=== PATIENT | male | born 1935 | race Caucasian/White ===

== ENCOUNTER 2017-05-13 18:20 | Emergency (ER) | payer OTHER ==
[~2017-05-13] VITALS: Ht 182.9 cm; Wt 112.5 kg
[~2017-05-13 18:20] MED LIST: ACETAMINOPHEN325 M1 PO; ADULT LOW DOSE81 MG PO; ALLOPURINOL1 GM MC; AMLODIPINE BESY10 MG PO; ASPIRIN81 M2 PO; ATORVASTATIN CA80 MG PO; AVODART0.5 MG PO; CLOPIDOGREL75 MG PO; FLOMAX0.4 MG PO; FLUOXETINE HCL20 MG PO; GLUCOPHAGE1000 MG PO; LANTUS (UNITS)1 UNIT SC; LANTUS 3 M100 UNITS1 SC; LANTUS100 UNIT/1 SQ; LISINOPRIL2.5 MG PO; MAXIDEX5 ML OP; MAXZIDE 37.5 M1 EACH PO; METFORMIN HYDROC1 GM PO; METOPROLOL TART25 MG PO; NORVASC2.5 MG PO; NORVASC5 MG PO; PRANDIN0.5 MG PO; PRINIVIL40 MG PO; PROZAC20 MG PO; PROZAC40 MG PO; REPAGLINIDE0.5 MG PO; TAMSULOSIN HCL0.4 MG PO; TYLENOL REGULA325 MG PO; TYLENOL WITH C1 EACH PO; VITAMIN D31000 UNIT PO; VYTORIN 10-101 EACH PO; ZESTRIL,PRINIV2.5 MG PO; ZESTRIL2.5 MG PO; ZYLOPRIM150 MG PO
[2017-05-13 21:04] VITALS: BP 189/90
== END 2017-05-13 21:08 | disposition home or self-care (01) ==
LOC: EME 18:20
DX: L76.22 Postprocedural hemorrhage of skin and subcutaneous tissue following other procedure (principal); C44.92 Squamous cell carcinoma of skin, unspecified; F02.80 Dementia in other diseases classified elsewhere, unspecified severity, without behavioral disturbance, psychotic disturbance, mood disturbance, and anxiety; G30.9 Alzheimer's disease, unspecified; E11.9 Type 2 diabetes mellitus without complications; Z79.4 Long term (current) use of insulin; I10 Essential (primary) hypertension; E78.5 Hyperlipidemia, unspecified; Z87.891 Personal history of nicotine dependence
CPT/HCPCS: 99281; 99284

== ENCOUNTER 2017-05-14 09:33 | Emergency (ER) | payer OTHER ==
[~2017-05-14] VITALS: Ht 182.9 cm; Wt 113.7 kg
[2017-05-14 11:03] VITALS: BP 179/81
== END 2017-05-14 12:16 | disposition home or self-care (01) ==
LOC: EME 09:33
DX: Z48.3 Aftercare following surgery for neoplasm (principal); Z85.820 Personal history of malignant melanoma of skin; F03.90 Unspecified dementia, unspecified severity, without behavioral disturbance, psychotic disturbance, mood disturbance, and anxiety; E11.9 Type 2 diabetes mellitus without complications; Z79.4 Long term (current) use of insulin; E78.5 Hyperlipidemia, unspecified; I10 Essential (primary) hypertension
CPT/HCPCS: 99281; 99284

== ENCOUNTER 2017-05-25 08:25 | Emergency (ER) | payer OTHER ==
[~2017-05-25] VITALS: Ht 182.9 cm; Wt 113.4 kg
[2017-05-25] MEDS ORDERED: PERCOCET 5/31 TABLET PO (10:53)
[2017-05-25 11:29] VITALS: BP 166/80
== END 2017-05-25 11:30 | disposition home or self-care (01) ==
LOC: EME 08:25
DX: S42.351A Displaced comminuted fracture of shaft of humerus, right arm, initial encounter for closed fracture (principal); S00.83XA Contusion of other part of head, initial encounter; W01.0XXA Fall on same level from slipping, tripping and stumbling without subsequent striking against object, initial encounter; E11.9 Type 2 diabetes mellitus without complications; E78.5 Hyperlipidemia, unspecified; I10 Essential (primary) hypertension; F02.80 Dementia in other diseases classified elsewhere, unspecified severity, without behavioral disturbance, psychotic disturbance, mood disturbance, and anxiety; G30.9 Alzheimer's disease, unspecified; Z79.4 Long term (current) use of insulin; Z87.891 Personal history of nicotine dependence
CPT/HCPCS: 70450; 70486; 73030; 73060; 93005; 99281; 99284

== ENCOUNTER 2017-05-29 16:56 | Emergency (ER) | payer OTHER ==
[~2017-05-29] VITALS: Ht 185.4 cm; Wt 113.7 kg
[~2017-05-29 16:56] MED LIST changes: +PERCOCET 5/31 TABLET PO
[2017-05-29 17:57] LABS: EOSINOPHIL (%) 1.1 % (0-5); EOSINOPHIL COUNT 0.1 K/uL (0-0.3); IMMATURE GRANULOCYTE (%) 0.7 % (0.0-0.7); IMMATURE GRANULOCYTE COUNT 0.1 K/uL; INSTRUMENT ABS NEUTROPHIL CT 8.4 K/uL; LYMPHOCYTE COUNT 1.1 K/uL (1.0-2.8); MCH 31.1 PG (29.0-34.0); MCHC 32.9 G/DL (30.0-36.0); MCV 94.4 FL (86-99); MEAN PLAT.VOLUME 8.9 uM^3 (9.0-12.4); MONOCYTE (%) 7.1 % (3-12); MONOCYTE COUNT 0.7 K/uL (0-0.8); NEUTROPHIL (%) 80.1 % (45-76); NEUTROPHIL COUNT 8.4 K/uL (1.8-6.4); PLATELET COUNT 277 K/uL (156-360); RBC DIS.WIDTH-SD 51.4 % (39-53); WHITE BLOOD COUNT 10.5 K/uL (4.1-10.2)
[2017-05-29 18:06] LABS: CHLORIDE 109 mEq/L (99-109); POTASSIUM 4.9 mEq/L (3.7-5.4); SODIUM 141 mEq/L (136-147)
[2017-05-29 18:08] LABS: GLUCOSE 183 mg/dL (70-99)
[2017-05-29 18:09] LABS: ANION GAP 13 MEQ/L (2-14)
[2017-05-29 18:10] LABS: TOTAL BILIRUBIN 0.7 mg/dL (0.0-1.0)
[2017-05-29 18:11] LABS: ALKALINE PHOSPHATASE 109 IU/L (3-129)
[2017-05-29 18:12] LABS: GFR ESTIMATE (CALCULATED) 29 mL/min/
[2017-05-29 18:13] LABS: UREA NITROGEN (BUN) 59 mg/dL (9-23)
[2017-05-29 18:18] LABS: TROP-I INTERPRETATION NEGATIVE; TROPONIN-I 0.05 ng/mL (0.0-0.30)
[2017-05-29 21:08] LABS: TROP-I INTERPRETATION NEGATIVE; TROPONIN-I 0.06 ng/mL (0.0-0.30)
[2017-05-29 22:45] VITALS: BP 158/88
== END 2017-05-29 22:57 | disposition home or self-care (01) ==
LOC: EME 16:56
PROVIDERS: Emergency Medicine
DX: R07.9 Chest pain, unspecified (principal); E11.9 Type 2 diabetes mellitus without complications; E78.5 Hyperlipidemia, unspecified; I10 Essential (primary) hypertension; Z79.4 Long term (current) use of insulin; G30.9 Alzheimer's disease, unspecified; F02.80 Dementia in other diseases classified elsewhere, unspecified severity, without behavioral disturbance, psychotic disturbance, mood disturbance, and anxiety; Z87.891 Personal history of nicotine dependence
CPT/HCPCS: 71010; 80053; 84484; 85025; 93005; 99281; 99285